=== PATIENT | female | born 1960 | race Caucasian/White ===

== ENCOUNTER 2021-01-29 06:36 | Observation (INO) ==
[~2021-01-29 06:36] MED LIST: Acetaminophen IV 1 GM/100 ML BAG IV ONE; Buffered Lidocaine 1% SYRIN 1 ml INTRADERM ONE; Famotidine IV 10 MG/ML 2 ml VIAL (20 mg) IV ONE; Lactated Ringers 1000 ml BAG 1,000 ML IV SCH
[2021-01-29] MEDS ORDERED: ceFAZolin 2 GM PREMIX 2 GM/50 ML BAG ONE (07:34)
[2021-01-29] MEDS ORDERED: Famotidine IV 10 MG/ML 2 ml VIAL (20 mg) ONE (07:34)
[2021-01-29] MEDS ORDERED: Midazolam 2 mg/2 ml VIAL 1 mg/ml 2 ml VIAL (2 mg) ONE (08:45)
[2021-01-29] MEDS ORDERED: Phenylephrine IV 10 MG/ML 1 ml VIAL ONE (08:48)
[2021-01-29] MEDS ORDERED: Propofol 0 MG/0 ML BTL ONE (08:48)
[2021-01-29] MEDS ORDERED: Rocuronium 50 mg VIAL 10 mg/ml 5 ml VIAL (50 mg) ONE (09:09)
[2021-01-29] MEDS ORDERED: fentaNYL 100 mcg/2 ml 50 MCG/ML VIAL ONE ×3 (09:10→13:21)
[2021-01-29] MEDS ORDERED: Ropivacaine 5 MG/ML 20 ML VIAL 0.5% (100 MG) ONE (09:33)
[2021-01-29] MEDS ORDERED: EPHEDrine (Pressors) 50 MG/ML VIAL ONE (10:26)
[2021-01-29] MEDS ORDERED: Midazolam 5 mg/5 ml VIAL 1 mg/ml 5 ml VIAL (5 mg) ONE (10:31)
[2021-01-29] MEDS ORDERED: Lidocaine 2% PF 5 ML VIAL ONE ×2 (10:31→15:22)
[2021-01-29] MEDS ORDERED: ROPIVACAINE 5 MG/ML 30 ML BTL (0.5%) ONE ×2 (10:31→12:01)
[2021-01-29] MEDS ORDERED: HYDROmorphone 1 MG/1 ML SYRINGE IV PRN (11:28)
[2021-01-29] MEDS ORDERED: Naloxone 0.4 mg VIAL 0.4 mg/ml 1 ml VIAL IV PRN (11:28)
[2021-01-29] MEDS ORDERED: Ondansetron 4 mg VIAL 2 MG/ML 2 ml VIAL IV PRN ×2 (11:28→12:56)
[2021-01-29] MEDS ORDERED: fentaNYL 100 mcg/2 ml 50 MCG/ML VIAL IV PRN (11:28)
[2021-01-29] MEDS ORDERED: Morphine 2 MG/ML SYRINGE IV PRN (12:56)
[2021-01-29] MEDS ORDERED: oxyCODONE/Acetamin 5/325 mg TAB PO PRN (12:56)
[2021-01-29] MEDS ORDERED: Lactulose 30 ml UDC PO PRN (12:56)
[2021-01-29] MEDS ORDERED: Magnesium Hydroxide LIQ 30 ML UDC PO PRN (12:56)
[2021-01-29] MEDS ORDERED: diPHENhydraMINE 25 mg TAB PO PRN (12:56)
[2021-01-29] MEDS ORDERED: Ondansetron ODT 4 mg TAB 4 MG TAB PO PRN (12:56)
[2021-01-29] MEDS ORDERED: diPHENhydraMINE IV 50 MG/ML 1 ml VIAL (BENADRYL) IV PRN (12:56)
[2021-01-29] MEDS: Lactated Ringers 1000 ml BAG 1,000 ML IV SCH (14:14)
[2021-01-29] MEDS ORDERED: Propofol 10 MG/ML 20 ML BTL ONE (16:10)
[2021-01-29] MEDS: ceFAZolin 1 GM ADVAN 1 GM in NS 0.9% 50 ML 50 ML IVPB SCH (17:58)
[2021-01-29] MEDS: Magnesium Hydroxide LIQ 30 ML UDC PO SCH (22:42)
[2021-01-30] MEDS: Lactated Ringers 1000 ml BAG 1,000 ML IV SCH (00:17)
[2021-01-30] MEDS: ceFAZolin 1 GM ADVAN 1 GM in NS 0.9% 50 ML 50 ML IVPB SCH ×2 (02:49→10:18)
[2021-01-30] MEDS: Magnesium Hydroxide LIQ 30 ML UDC PO SCH (07:50)
[2021-01-30] MEDS ORDERED: Vitamin THERAPEUTIC TAB PO SCH (09:00)
[2021-01-30 11:28] LABS: Hematocrit 30 % (35-47); Hemoglobin 10.2 g/dL (12.0-16.0); Mean Platelet Volume 8.7 fL (7.4-10.4); Platelet Count 166 10^3/uL (150-450)
[2021-01-30 11:32] VITALS: BP 90/45
[2021-01-30 11:45] LABS: Calcium 8.7 mg/dL (8.6-10.3); EGFR Non-African American 67.8 (>60); Potassium 3.7 mmol/L (3.5-5.0)
== END 2021-01-30 13:22 | disposition home or self-care (01) ==
LOC: INTOOBSV 06:36 → AA 06:36 → SSU 12:56
PROVIDERS: ADMIT Orthopaedic Surgery Adult Reconstructive Orthopaedic Surgery; ATTEND Orthopaedic Surgery Adult Reconstructive Orthopaedic Surgery